=== PATIENT | female | born 1980 | race Caucasian/White ===

== ENCOUNTER → 2017-11-13 | Outpatient (CLI) | payer OTHER | LOC: CFH 15:53 | PROVIDERS: ATTEND Physical Medicine & Rehabilitation | DX: M54.16 Radiculopathy, lumbar region (principal) | CPT/HCPCS: 72148 ==

== ENCOUNTER → 2020-03-03 | Outpatient (CLI) | payer OTHER | END | disposition home or self-care (01) | LOC: CFH 07:50 | PROVIDERS: ATTEND Family Medicine | DX: S39.011A Strain of muscle, fascia and tendon of abdomen, initial encounter (principal); M54.42 Lumbago with sciatica, left side; K46.9 Unspecified abdominal hernia without obstruction or gangrene; X58.XXXA Exposure to other specified factors, initial encounter; Y93.89 Activity, other specified; Y92.89 Other specified places as the place of occurrence of the external cause; Y99.8 Other external cause status | CPT/HCPCS: 72148; 76705 ==

== ENCOUNTER 2020-11-10 13:07 | Outpatient (CLI) | payer OTHER ==
[2020-11-10] MEDS ORDERED: TIZA4CAP PO (14:11)
[2020-11-10] MEDS ORDERED: MELO15TA24 PO (14:11)
[2020-11-10] MEDS ORDERED: ACET-1600 PO (14:11)
== END 2020-11-10 23:59 | disposition home or self-care (01) ==
LOC: STAR 13:07
PROVIDERS: ATTEND Orthopaedic Surgery Hand Surgery
DX: Z20.822 Contact with and (suspected) exposure to COVID-19 (principal); S63.642A Sprain of metacarpophalangeal joint of left thumb, initial encounter; X58.XXXA Exposure to other specified factors, initial encounter; Y93.89 Activity, other specified; Y92.89 Other specified places as the place of occurrence of the external cause; Y99.8 Other external cause status
CPT/HCPCS: U0003; U0005

== ENCOUNTER 2020-11-16 05:27 | Day surgery (SDC) | payer OTHER ==
[~2020-11-16] VITALS: Ht 152.4 cm; Wt 79.0 kg
[~2020-11-16 05:27] MED LIST: ACET-1600 PO; MELO15TA24 PO; TIZA4CAP PO
[2020-11-16 06:03] VITALS: BP 108/81
[2020-11-16] MEDS ORDERED: LIDOCAINE-MPF 1%, 5ML ONE (06:05)
[2020-11-16] MEDS ORDERED: CHLORHEXIDINE 15 ML UDC ONE (06:05)
[2020-11-16] MEDS ORDERED: BUPIVACAINE/PF 0.5% ONE (06:05)
[2020-11-16 06:21] LABS: HCG UR SG 1.019 (1.003-1.030)
[2020-11-16] MEDS ORDERED: LACTATED RINGERS 1,000 ML IV SCH (06:30)
[2020-11-16] MEDS ORDERED: CHLORHEXIDINE 15 ML UDC PO ONE (06:30)
[2020-11-16] MEDS ORDERED: FENTANYL PF 100 MCG/2ML ONE ×2 (06:43→08:30)
[2020-11-16] MEDS ORDERED: MIDAZOLAM 1 MG/ML, 2ML ONE (06:43)
[2020-11-16] MEDS ORDERED: KETOROLAC 30 MG/1 ML ONE (06:59)
[2020-11-16] MEDS ORDERED: METOCLOPRAMIDE 5 MG/ML, 2ML ONE (06:59)
[2020-11-16] MEDS ORDERED: ACETAMINOPHEN 325 MG TABLET PO PRN (07:00)
[2020-11-16] MEDS ORDERED: MEPERIDINE/PF 25MG/0.5ML IVPush PRN (07:00)
[2020-11-16] MEDS ORDERED: FENTANYL PF 100 MCG/2ML IV PRN (07:00)
[2020-11-16] MEDS ORDERED: OXYcodone 5 MG/5 ML ORAL.SOL UDC PO PRN (07:00)
[2020-11-16] MEDS ORDERED: LABETALOL 5MG/ML, 20ML IV PRN (07:00)
[2020-11-16] MEDS ORDERED: PROMETHAZINE 25 MG/ML, 1ML IVPush PRN (07:00)
[2020-11-16] MEDS ORDERED: MIDAZOLAM 1 MG/ML, 2ML IV PRN (07:00)
[2020-11-16] MEDS ORDERED: HYDROmorphone 1 MG/ML, 1ML INJ IVPush PRN (07:00)
[2020-11-16] MEDS ORDERED: PROPOFOL 10 MG/ML, 20ML ONE (07:20)
[2020-11-16] MEDS ORDERED: ONDANSETRON 2MG/ML, 2ML ONE (07:20)
[2020-11-16] MEDS ORDERED: CEFAZOLIN 1,000 MG ONE (07:20)
[2020-11-16] MEDS ORDERED: DEXAMETHASONE 4 MG/ML, 5ML ONE (07:20)
[2020-11-16] MEDS ORDERED: LIDOCAINE-MPF 2% ,5ML ONE (07:20)
[2020-11-16] MEDS ORDERED: OXYcodone 5 MG/5 ML ORAL.SOL UDC ONE (08:30)
[2020-11-16] MEDS ORDERED: ACETAMINOPHEN 650 MG/20.3 ML UDC ONE (08:30)
== END 2020-11-16 10:08 | disposition home or self-care (01) ==
LOC: OUT 05:27
PROVIDERS: ATTEND Orthopaedic Surgery Hand Surgery
DX: S63.642A Sprain of metacarpophalangeal joint of left thumb, initial encounter (principal); E66.9 Obesity, unspecified; Z79.1 Long term (current) use of non-steroidal anti-inflammatories (NSAID); Z79.899 Other long term (current) drug therapy; W22.8XXA Striking against or struck by other objects, initial encounter; Y93.89 Activity, other specified; Y92.89 Other specified places as the place of occurrence of the external cause; Y99.0 Civilian activity done for income or pay
CPT/HCPCS: 26540; 81025; C1713; J0690; J1100; J1885; J2250; J2405; J2704; J2765; J3010; J7120